=== PATIENT | female | born 1995 | race Two or more races ===

== ENCOUNTER 2017-09-25 23:11 | Emergency (ER) | payer SELFPAY ==
[~2017-09-25] VITALS: Ht 154.9 cm; Wt 47.6 kg
[2017-09-25] MEDS ORDERED: SODIUM CHLORIDE 0.9% 1000ML 1,000 ML IV STA (23:54)
[2017-09-26] MEDS ORDERED: METOCLOPRAMIDE HCL 10 MG/2ML VIAL IV ONE
[2017-09-26] MEDS ORDERED: POTASSIUM CHLORIDE 20 MEQ TAB CR PO STA (00:32)
[2017-09-26] MEDS ORDERED: POTASSIUM CHLORIDE 20MEQ/100ML 100 ML IV ONE (00:45)
[2017-09-26] MEDS ORDERED: ONDANSETRON HCL INJ 2 MG/ML VIAL IV STA (01:11)
[2017-09-26] MEDS ORDERED: SODIUM CHLORIDE 0.9% 1000ML 1,000 ML IV STA (01:53)
[2017-09-26 05:18] VITALS: BP 116/59
== END 2017-09-26 05:20 | disposition home or self-care (01) ==
LOC: FSED 23:11
DX: O21.1 Hyperemesis gravidarum with metabolic disturbance (principal); O99.321 Drug use complicating pregnancy, first trimester; F12.19 Cannabis abuse with unspecified cannabis-induced disorder; O99.331 Smoking (tobacco) complicating pregnancy, first trimester; Z3A.01 Less than 8 weeks gestation of pregnancy; E87.6 Hypokalemia
CPT/HCPCS: 36415; 76801; 76817; 80048; 80307; 81003; 81025; 84702; 85025; 86900; 99284; J2405; J3480; J7030 ×2